=== PATIENT | female | born 1980 | race Caucasian/White ===

== ENCOUNTER 2023-05-13 13:21 | Emergency (ER) | payer OTHER ==
--- NOTE | 2023-05-13 13:47 | ED ---
Nausea/Vomiting/Diarrhea HPI - General Source: patient, RN notes reviewed Mode of arrival: ambulatory Limitations: no limitations <Miguel Martin - Last Filed: 05/13/23 13:46> <Wendy Nuñez - Last Filed: 05/13/23 18:04> - General Chief complaint: Nausea/Vomiting/Diarrhea Stated complaint: diarrhea Time Seen by Provider: 05/13/23 13:46 - History of Present Illness Initial comments: 42-year-old female presents emergency Department chief complaint of diarrhea 8 days. Patient states that this started after running ultramarathon. Patient states she thought she was initially feeling better last couple days but symptoms worsened again. She states she just feels off does not feel well. She denies any chest pain or shortness breath she denies any prior bowel infections. Patient states at she does not have any history of IBD or IBS. (Miguel Martin) He patient is a healthy 42-year-old female presents emergency room with complaints of abdominal pain for over 8 days. States it was profuse multiple times a day and now is about 1 or 2 times a day. States she has had a decreased appetite and just does not feel quite like herself. She denies any nausea vomiting, cough, fever or other flulike symptoms. She has minimal or abdominal pain. She denies any dysuria, hematuria urinary frequency. Patient states her symptoms started after she read on ultramarathon. Does admit that she did fall into a puddle towards the end of the race. Denies any sick contacts. She denies any history of Crohn's, colitis, diverticulitis, IBS. Denies any recent antibiotic use. (Wendy Nuñez) - Related Data Previous Rx's Medication Instructions Recorded Azithromycin [Zithromax Z Pack] 1 tab PO DIRECTED #6 tab 05/13/23 Allergies Allergy/AdvReac Type Severity Reaction Status Date / Time No Known Allergies Allergy Verified 05/13/23 13:39 Review of Systems ROS Other: All systems not noted in ROS Statement are negative. <Miguel Martin - Last Filed: 05/13/23 13:46> ROS Other: All systems not noted in ROS Statement are negative. <Wendy Nuñez - Last Filed: 05/13/23 18:04> ROS Statement: Those systems with pertinent positive or pertinent negative responses have been documented in the HPI. Past Medical History Past Medical History: No Reported History History of Any Multi-Drug Resistant Organisms: None Reported Past Surgical History: Appendectomy Past Psychological History: No Psychological Hx Reported Smoking Status: Never smoker Past Alcohol Use History: None Reported <TerraMiguel silverio Tom - Last Filed: 05/13/23 13:46> General Exam Limitations: no limitations <Miguel Martin - Last Filed: 05/13/23 13:46> Limitations: no limitations General appearance: alert, in no apparent distress Head exam: Present: atraumatic Eye exam: Present: normal appearance ENT exam: Present: normal exam Neck exam: Present: normal inspection, full ROM Respiratory exam: Present: normal lung sounds bilaterally Cardiovascular Exam: Present: regular rate, normal rhythm GI/Abdominal exam: Present: soft, tenderness (Minimal left lower quadrant abdominal tenderness, no rebound tenderness no peritoneal signs. No abdominal distention.) Extremities exam: Present: full ROM Back exam: Present: full ROM Neurological exam: Present: alert, oriented X3, CN II-XII intact Psychiatric exam: Present: normal affect, normal mood Skin exam: Present: warm <Wendy Nuñez - Last Filed: 05/13/23 18:04> - General Exam Comments Initial Comments: Visual Physical Exam Vital signs reviewed General: Well-appearing, nontoxic, no acute distress. Head: Normocephalic, atraumatic Eyes: PERRLA, EOMI ENT: Airway patent Chest: Nonlabored breathing Skin: No visual rash, normal skin tone Neuro: Alert and oriented 3 Musculoskeletal: No gross abnormalities (Miguel Martin) Course <JayashreeWendy sanchez - Last Filed: 05/13/23 18:04> Vital Signs 05/13/23 13:36 Temperature 98 F Pulse Rate 48 L Respiratory 16 Rate Blood Pressure 136/64 O2 Sat by Pulse 100 Oximetry - Reevaluation(s) Reevaluation #1: 05/13/23 17:39 Since resting comfortably to this time. Did receive IV fluids. I discussed lab and imaging results with patient. She had a slightly elevated LFT different ultrasound of the gallbladder was ordered as well. The ultrasound shows hepatomegaly but no gallstones, dilated common bile duct or other acute changes. CT is negative for any obstruction, colitis, diverticulitis or other acute abnormalities. I discussed following up with GI specialist. Discussed outpatie nt stool studies of the patient is unable to get today. I discussed return to regular diet with the patient. She understands and agrees to treatment discharge plan. (Wendy Nuñez) Medical Decision Making <Miguel Martin - Last Filed: 05/13/23 13:46> - Lab Data Result diagrams: 05/13/23 14:01 05/13/23 14:01 - Radiology Data Radiology results: report reviewed, image reviewed <Wendy Nuñez - Last Filed: 05/13/23 18:04> - Medical Decision Making I performed a quick note portion of this chart signed Miguel Martin PA-C (Miguel Martin) Was pt. sent in by a medical professional or institution ([facility], GRAPHIC ARTIST, urgent care, hospital, or fci...) When possible be specific @ -[No] Did you speak to anyone other than the patient for history (EMS, parent, family, police, friend...)? What history was obtained from this source @ -[No] Did you review nursing and triage notes (agree or disagree)? Why? @ -[I reviewed and agree with nursing and triage notes] Were old charts reviewed (outside hosp., previous admission, EMS record, old EKG, old radiological studies, urgent care reports/EKG's, fci records)? Report findings @ -[No old charts were reviewed] Differential Diagnosis (chest pain, altered mental status, abdominal pain women, abdominal pain men, vaginal bleeding, weakness, fever, dyspnea, syncope, headache, dizziness, GI bleed, back pain, seizure, CVA, palpatations, mental health, musculoskeletal)? @ -Gastroenteritis, diverticulitis, colitis, IBS, Giardia, C. diff EKG interpreted by me (3pts min.). @ -[As above] X-rays interpreted by me (1pt min.). @ -[None done] CT interpreted by me (1pt min.). @ -CT is negative for any bowel objection, mass, colitis, diverticulitis or other acute changes. Radiology report pending for confirmation U/S interpreted by me (1pt. min.). @ -Ultrasound is negative for any obvious gallstones or cholecystitis however radiology report is pending for confirmation. What testing was considered but not performed or refused? (CT, X-rays, U/S, labs)? Why? @ -[None] What meds were considered but not given or refused? Why? @ -[None] Did you discuss the management of the patient with other professionals (professionals i.e. , PA, GRAPHIC ARTIST, lab, RT, psych nurse, social services specialist, public policy associate, teacher, chief technical officer, manager case management)? Give summary @ -Discussed patient's symptoms are And management with attending ED physician Dr. Meier. Was smoking cessation discussed for >3mins.? @ -[No] Was critical care preformed (if so, how long)? @ -[No] Were there social determinants of health that impacted care today? How? (Homelessness, low income, unemployed, alcoholism, drug addiction, transportation, low edu. Level, literacy, decrease access to med. care, fdc, rehab)? @ -[No] Was there de-escalation of care discussed even if they declined (Discuss DNR or withdrawal of care, Hospice)? DNR status @ -[No] What co-morbidities impacted this encounter? (DM, HTN, Smoking, COPD, CAD, Cancer, CVA, ARF, Chemo, Hep., AIDS, mental health diagnosis, sleep apnea, morbid obesity)? @ -[None] Was patient admitted / discharged? Hospital course, mention meds given and route, prescriptions, significant lab abnormalities, going to OR and other pertinent info. @ -Patient is stable does not require hospital admission at this time. She may follow up with GI specialist and PCP for continued management. She will try to provide a stool sample as an outpatient and can have her primary follow-up with them. Patient has an antibiotic that she may start to take if she continues to have diarrhea within the next 3 days without providing a stool sample. Undiagnosed new problem with uncertain prognosis? @ -[No] Drug Therapy requiring intensive monitoring for toxicity (Heparin, Nitro, Insulin, Cardizem)? @ -[No] Were any procedures done? @ -[No] Diagnosis/symptom? @ -Diarrhea, Mild elevated LFTs, hepatomegaly Acute, or Chronic, or Acute on Chronic? @ -[Acute] Uncomplicated (without systemic symptoms) or Complicated (systemic symptoms)? @ -[default] Side effects of treatment? @ -[No] Exacerbation, Progression, or Severe Exacerbation? @ -[No] Poses a threat to life or bodily function? How? (Chest pain, USA, DC, pneumonia, PE, COPD, DKA, ARF, appy, cholecystitis, CVA, Diverticulitis, Homicidal, Suicidal, threat to staff... and all critical care pts) @ -[No] (Wendy Nuñez) - Lab Data Lab Results 05/13/23 05/13/23 05/13/23 Range/Units 14:01 14:01 14:35 WBC 5.5 (3.8-10.6) k/uL RBC 4.50 (3.80-5.40) m/uL Hgb 14.3 (11.4-16.0) gm/dL Hct 42.1 (34.0-46.0) % MCV 93.5 (80.0-100.0) fL MCH 31.7 (25.0-35.0) pg MCHC 33.9 (31.0-37.0) g/dL RDW 12.3 (11.5-15.5) % Plt Count 231 (150-450) k/uL MPV 8.2 Neutrophils % 61 % Lymphocytes % 29 % Monocytes % 5 % Eosinophils % 2 % Basophils % 1 % Neutrophils # 3.4 (1.3-7.7) k/uL Lymphocytes # 1.6 (1.0-4.8) k/uL Monocytes # 0.3 (0-1.0) k/uL Eosinophils # 0.1 (0-0.7) k/uL Basophils # 0.0 (0-0.2) k/uL Sodium 140 (137-145) mmol/L Potassium 4.0 (3.5-5.1) mmol/L Chloride 103 (98-107) mmol/L Carbon Dioxide 27 (22-30) mmol/L Anion Gap 10 mmol/L BUN 12 (7-17) mg/dL Creatinine 0.73 (0.52-1.04) mg/dL Est GFR (CKD-EPI)AfAm >90 (>60 ml/min/1.73 sqM) Est GFR (CKD-EPI)NonAf >90 (>60 ml/min/1.73 sqM) Glucose 101 H (74-99) mg/dL Calcium 9.4 (8.4-10.2) mg/dL Magnesium 1.8 (1.6-2.3) mg/dL Total Bilirubin 0.6 (0.2-1.3) mg/dL AST 44 H (14-36) U/L ALT 25 (4-34) U/L Alkaline Phosphatase 46 (38-126) U/L Total Protein 7.0 (6.3-8.2) g/dL Albumin 4.3 (3.5-5.0) g/dL Amylase 44 (30-110) U/L Lipase 271 (23-300) U/L Urine Color Colorless Urine Appearance Clear (Clear) Urine pH 7.0 (5.0-8.0) Ur Specific Thornton 1.005 (1.001-1.035) Urine Protein Negative (Negative) Urine Glucose (UA) Negative (Negative) Urine Ketones Negative (Negative) Urine Blood Negative (Negative) Urine Nitrite Negative (Negative) Urine Bilirubin Negative (Negative) Urine Urobilinogen <2.0 (<2.0) mg/dL Ur Leukocyte Esterase Negative (Negative) Disposition <Miguel Martin - Last Filed: 05/13/23 13:46> Is patient prescribed a controlled substance at d/c from ED?: No When asked, does pt state using other controlled substances?: No If prescribed controlled substance>3 days was MAPS reviewed?: No Time of Disposition: 18:02 Decision Time: 18:00 <Wendy Nuñez - Last Filed: 05/13/23 18:04> Clinical Impression: Diarrhea, Encounter for medical screening examination, Liver enzyme elevation Disposition: HOME SELF-CARE Condition: Fair Instructions (If sedation given, give patient instructions): Acute Nausea and Vomiting (ED), Acute Diarrhea (ED) Prescriptions: Azithromycin [Zithromax Z Pack] 1 tab PO DIRECTED #6 tab Referrals: Zainab Booker MD [Primary Care Provider] - 1-2 days Adrianne Madsen MD [STAFF PHYSICIAN] - 1-2 days
[2023-05-13 14:12] LABS: Basophils % (A) 1 %; Eosinophils # (A) 0.1 k/uL (0-0.7); Eosinophils % (A) 2 %; HCT 42.1 % (34.0-46.0); HGB 14.3 gm/dL (11.4-16.0); Lymphocytes # (A) 1.6 k/uL (1.0-4.8); Lymphocytes % (A) 29 %; MCH 31.7 pg (25.0-35.0); MCHC 33.9 g/dL (31.0-37.0); MCV 93.5 fL (80.0-100.0); Mean Platelet Volume 8.2; Monocytes # (A) 0.3 k/uL (0-1.0); Monocytes % (A) 5 %; Neutrophils # (A) 3.4 k/uL (1.3-7.7); Neutrophils % (A) 61 %; Platelet Count 231 k/uL (150-450); RDW 12.3 % (11.5-15.5); WBC 5.5 k/uL (3.8-10.6)
[2023-05-13 14:33] LABS: ALT 25 U/L (4-34); AST 44 U/L (14-36); African American GFR (CKD) >90 (>60 ml/min/1.73 sqM); Albumin 4.3 g/dL (3.5-5.0); Alkaline Phosphatase 46 U/L (38-126); Amylase 44 U/L (30-110); Anion Gap 10 mmol/L; Blood Urea Nitrogen 12 mg/dL (7-17); Calcium 9.4 mg/dL (8.4-10.2); Carbon Dioxide 27 mmol/L (22-30); Chloride 103 mmol/L (98-107); Glucose 101 mg/dL (74-99); Lipase 271 U/L (23-300); Magnesium 1.8 mg/dL (1.6-2.3); Non-African American GFR(CKD) >90 (>60 ml/min/1.73 sqM); Sodium 140 mmol/L (137-145); Total Bilirubin 0.6 mg/dL (0.2-1.3)
[2023-05-13 14:42] LABS: Appearance,Urine Clear (Clear); Bilirubin,Urine Negative (Negative); Blood,Urine Negative (Negative); Color,Urine Colorless; Glucose,Urine (UA) Negative (Negative); Ketones,Urine Negative (Negative); Leukocyte Esterase,Urine Negative (Negative); Nitrite,Urine Negative (Negative); Protein,Urine Negative (Negative); Specific Gravity,Urine 1.005 (1.001-1.035); Urobilinogen,Urine <2.0 mg/dL (<2.0)
[2023-05-13] MEDS ORDERED: SODIUM CHLORIDE 0.9% 1,000 ML IV STA (14:46)
--- NOTE | 2023-05-13 15:41 | CT ---
EXAMINATION TYPE: CT abdomen pelvis w con CT DLP: 560.7 mGycm, Automated exposure control for dose reduction was used. DATE OF EXAM: 05/13/2023 3:26 PM COMPARISON: None CLINICAL INDICATION:Female, 42 years old with history of abdominal pain, diarrhea; abdominal pain, di arrhea TECHNIQUE: Standard CT of the abdomen and pelvis following the administration of 100 cc of Isovue 3 00 IV contrast material. Coronal and sagittal reformats were performed. FINDINGS: Limited examination due to paucity of intraluminal fat. LOWER CHEST: Unremarkable ABDOMEN LIVER: No focal lesion. Enlarged measuring 19.0 cm in CC dimension. GALLBLADDER AND BILE DUCTS: Unremarkable. PANCREAS: Unremarkable. SPLEEN: Unremarkable. ADRENAL GLANDS: Unremarkable. KIDNEYS AND URETERS: No evidence of hydronephrosis or renal calculus. The kidneys enhance symmetrical ly. Contrast is demonstrated within both collecting systems on the delayed phase. PELVIS BLADDER: Unremarkable REPRODUCTIVE: Unremarkable. ABDOMEN & PELVIS STOMACH AND BOWEL: Stomach and duodenum are unremarkable. No focal bowel wall thickening or surroundi ng inflammatory changes. No evidence of bowel obstruction. PERITONEUM: No evidence of pneumoperitoneum or free fluid. VASCULATURE: No evidence of aortic aneurysm. MUSCULOSKELETAL: No acute osseous abnormalities LYMPH NODES: No gross evidence for lymphadenopathy. SOFT TISSUE/ABDOMINAL WALL: Unremarkable IMPRESSION: 1. No acute abdominal/pelvic process. 2. Hepatomegaly.
--- NOTE | 2023-05-13 16:28 | US ---
EXAMINATION TYPE: US gallbladder DATE OF EXAM: 05/13/2023 COMPARISON: CT today - negative CLINICAL INDICATION: Female, 42 years old with history of diarrhea, elevated LFT; TECHNIQUE: Multiple sonographic images of the right upper quadrant are obtained. FINDINGS: EXAM MEASUREMENTS: Liver Length: 16.3 cm Gallbladder Wall: 0.22 cm CBD: 0.35 cm Right Kidney: 12.3 x 4.3 x 4.6 cm Pancreas: wnl Liver: wnl Gallbladder: wnl Evidence for sonographic Meredith's sign: no CBD: wnl Right Kidney: wnl IMPRESSION: No evidence for acute process.
[2023-05-13 18:24] VITALS: BP 129/70; PULSE 52; RESP 18; TEMP 97.9
[2023-05-14 22:38] LABS: Cryptosporidium Antigen Negative (Negative)
== END 2023-05-13 18:17 | disposition home or self-care (01) ==
LOC: EC 13:21
DX: R19.7 Diarrhea, unspecified (principal); R74.01 Elevation of levels of liver transaminase levels; Z00.01 Encounter for general adult medical examination with abnormal findings
CPT/HCPCS: 36415; 80053; 82150; 83690; 83735; 85025; 81003; 76705; 74177; 99284; 96360; Q9967; 87045; 87046; 87324; 87328; 87329